=== PATIENT | female | born 1965 | race Caucasian/White ===

== ENCOUNTER 2024-02-23 14:59 | Emergency (ER) | payer BC, SELFPAY ==
[2024-02-23 15:00] VITALS: BP 157/85; PULSE 74; RESP 15; TEMP 36.6; O2SAT 99; BMI 32.7
--- NOTE | 2024-02-23 15:24 | EDS_ITS ---
HPI History of Present Illness Chief Complaint: Eye Problem Informant: patient Narrative Narrative: Presents to the ED for evaluation of right eye issues. Yesterday patient is nearsighted wears glasses last eye exam 2 years ago. Yesterday stated noted oral sensation that was brief on the right side. That has resolved. She has had oral issues couple times in the past also self-limiting. Today however reported no in the right eye film to her right eye and noting bubbles in different depth. Denies recent head injuries. Denies visual changes. She reports she has been caring for her 2 parents who are both in hospice, she lost her pet of 20 years, her spouse just got diagnosed with melanoma. Denies nausea or vomiting. Denies any past medical history. Denies any pain to the eye. Prior similar symptoms: No PFSH PFSH Allergy/AdvReac Type Severity Reaction Status Date / Time No Known Allergies Allergy Verified 02/23/24 15:00 Social History Smoking Status: Never smoker ROS ROS ED Constitutional Constitutional ED: Denies chills, fever(s) or sweats Eyes Eyes: Reports blurry vision and other Details: Film to right eye, transient aura ; Denies change in vision Cardiovascular Cardiovascular: Denies chest pain Respiratory/Chest Respiratory/Chest: Denies cough Gastrointestinal Gastrointestinal: Denies abdominal pain, nausea or vomiting Neurologic Neurologic: Denies headache(s) EXAM Physical Exam Const Vital Signs: 02/23/24 15:00 Temperature 97.8 F Temperature Source Temporal Pulse Rate 74 Respiratory Rate 15 Blood Pressure 157/85 H Blood Pressure Mean 109 Pulse Ox 99 Oxygen Delivery Method Room Air Positive well nourished and well developed General Appearance ED: well developed and NAD HEENT Reports moist mucous membranes normocephalic and atraumatic Eyes EOMs intact bilaterally and conjunctivae normal Eyes Narrative: Pupils equal and reactive to light symmetric bilaterally. Eyelids normal eyelid everted right eye normal. Gross examination is corneas normal. Visual acuity with glasses: 20/20 OD, 20/25 OS, 20/20 OU. Finger counting in all 4 quadrants intact. General Eye ED: Yes normal appearance of both eyes Neck General: Negative for tenderness Chest Wall Chest: Negative for tenderness Resp normal respiratory effort and normal air movement Effort and Inspection: symmetric chest movement; Negative for respiratory distress Cardio regular rate, regular rhythm and no murmurs Peripheral Pulses: pulses 2+ throughout GI normal to inspection, nondistended, normoactive bowel sounds and non-tender Palpation: Negative for guarding or rebound tenderness present Back/Spine no CVA tenderness and no thoracic nor lumbar tenderness Extremity normal to inspection General Extremety ED: Negative for edema or tenderness General Extremity: Negative for edema Neuro oriented x3, CN's II-XII intact bilaterally and no sensory deficits noted Sensorium / Orientation: awake and alert Skin no rashes or lesions noted and no wounds MDM MDM MDM Narrative Medical decision making narrative: Interventions / MDM: Differential diagnosis: Right eye visual disturbance, floaters Diagnosis considered but do not suspect: No signs of glaucoma, no loss of vision in any quadrants. No clinical stroke concerns. My EKG interpretation: N/A Imaging independently reviewed and interpreted by myself: N/A External documents reviewed: N/A Test considered but not ordered:N/A ED course: Vision acuity 20/25 on the right, denied any pain or visual changes. Low clinical suspicion for glaucoma or retinal detachment. However reporting a film to her eye with bubbles in different depth that is not new for her. I will discuss with ophthalmology for outpatient evaluation. 1540: I spoke with adjunct professor of law Dr. Patel, discussed patient's history and discussion findings. Patient reports only few floaters no vision loss no pain. She is not clear on her history noting a film with bubbles in different depth. She also agrees low suspicion for retinal detachment however states if she develops 100s of floaters or loss of vision for her to return for reevaluation. Otherwise she can follow-up with the office on Monday. I discussed this with the patient with signs and symptoms to return. Outpatient follow-up given. All questions were answered. Re-evaluation: stable Disposition discussed with patient/family/significant other: Patient Case discussed with consulting clinician: Ophthalmology This note was generated with [employer] dictation software. It may contain incorrect words, spelling, and punctuation that were not noted in checking the note before signing. Discharge Plan Triage Chief Complaint: Eye Problem ED Provider: Odin Lawrence Dx/Rx/DC Orders Clinical Impression: Visual disturbance of one eye, Vitreous floaters of right eye Instructions: What Are Flashes and Floaters? Primary Care Provider: Care Physician,No Primary Referrals: Luz Patel MD [Med Staff - Active Staff] - 02/26/24 Care Physician,No Primary [Primary Care Provider] - Activity Restrictions/Additional Instructions: Visual acuity with glasses 20/25 OD, 20/20 OS, 20/[address] Patel in the ED. Monitor symptoms. Follow-up with office on Monday. Call for an appointment. If you develop loss of vision or 100s of floaters, return to the ED for reevaluation. Print Language: Kinyarwanda Disposition Disposition: Home, Self Care Discharge Date/Time: 02/23/24 16:05
[2024-02-23 16:04] VITALS: BP 146/84; PULSE 77; RESP 16; TEMP 36.6; O2SAT 100
== END 2024-02-23 16:05 | disposition home or self-care (01) ==
PROVIDERS: Emergency Provider Emergency Medicine; Referring Provider Emergency Medicine; Visit Provider Emergency Medicine
DX: H53.9 Unspecified visual disturbance (principal); H43.391 Other vitreous opacities, right eye
CPT/HCPCS: 99283

== ENCOUNTER → 2024-06-20 | Outpatient (CLI) | payer BC, SELFPAY ==
[2024-06-20 10:49] LABS: Absolute Lymphocyte Count 1.42 X10^3/uL (0.83-4.51); Absolute Neutrophil Count 1.9 X10^3/uL (2.0-7.7); Basophil# 0.05 X10^3/uL; Basophil% 1.3 % (0-1); Eosinophils% 5.2 % (0-5); Hematocrit 38.1 % (37-47); Lymphocyte # 1.42 X10^3/ul (0.83-4.51); Lymphocyte % 37.1 % (19-41); Mean Corp Hgb Conc 34.1 g/dL (32-36); Mean Corpuscular Hgb 30.6 pg (27.0-32.0); Mean Corpuscular Volume 89.6 fL (81-99); Mean Platelet Vol. 8.9 fl (6.2-12.0); Monocyte# 0.26 X10^3/uL; Monocyte% 6.8 % (0-10); NRBC Flagged by Analyzer 0 % (0-5); Neutrophil % 49.6 % (47-70); Platelet Count 185 K/mm3 (150-450); RBC Distribution Width CV 12.6 % (11.6-14.6); RBC Distribution Width SD 41.5 fl (35.1-43.9); Red Blood Count 4.25 M/mm3 (4.2-5.4); White Blood Count 3.8 K/mm3 (4.4-11.0)
[2024-06-20 11:28] LABS: ALB/GLOB Ratio 1.6 RATIO (0.9-2.4); AST(SGOT) 24 U/L (<=31); Alanine Aminotransfer ALT/SGPT 16 U/L (<=34); Albumin, Serum 4.1 g/dL (3.5-5.0); Alkaline Phosphatase 59 U/L (35-104); Anion Gap 9 (5-15); BUN 14 mg/dL (4-19); BUN/Creat Ratio 20.2 RATIO (10-20); Calcium,Total 9.1 mg/dL (7.6-11.0); Carbon Dioxide 26.4 mmol/L (21.0-32.0); Chloride 104 mmol/L (98-108); Cholesterol 183 mg/dL (<=200); EST Glomerular Filtration Rate 100 (>60); Ferritin 23 ng/mL (22-378); Globulin 2.5 g/dL (2.2-4.2); Glucose 86 mg/dL (70-99); High Density Lipoprotein 78 mg/dL; Low Density Lipoprotein Calc. 93 mg/dL; Potassium 4.2 mmol/L (3.3-5.1); Protein, Total 6.5 g/dL (5.9-8.4); Sodium Level 140 mmol/L (133-145); Total Bilirubin 0.42 mg/dL (0.00-1.30); Triglycerides 60 mg/dL; Very Low Density Lipoprotein 12 mg/dL (5-40); Vitamin B12 169 pg/mL (180-914); cholesterol:hdl ratio screen 2.33
[2024-06-20 14:24] LABS: Iron 110 ug/dL (50-170); Iron Binding Capacity,Total 308 ug/dL (250-450); Iron Binding Capacity,Unsat 198 ug/dL (228-428)
== END | disposition home or self-care (01) ==
LOC: MFPLAB 09:06
PROVIDERS: PCP Family Medicine; Referring Provider Family Medicine; Visit Provider Family Medicine
DX: Z78.9 Other specified health status (principal); E04.1 Nontoxic single thyroid nodule; F43.22 Adjustment disorder with anxiety
CPT/HCPCS: 36415; 80053; 80061; 82248; 82607; 82728; 82746; 83540; 83550; 84443; 85025

== ENCOUNTER → 2024-09-30 | Outpatient (CLI) | payer BC, SELFPAY ==
--- NOTE | 2024-09-30 10:03 | VDLE_ITS ---
Reason For Study Reason For Study: Right leg pain RIGHT CFV is compressible, spontaneous, phasic, competent and demonstrates normal augmentation. FV is compressible, spontaneous, phasic, competent and demonstrates normal augmentation. POP V is compressible, spontaneous, phasic, competent and demonstrates normal augmentation. T/P Trunk is compressible. PTV is compressible. RT PerV is compressible. SFJ is absent, hx ligation. GSV proximal thigh measures 0.19 x 0.21 cm. GSV at knee measures 0.15 x 0.16 cm. GSV is competent throughout. ASV 1 proximal thigh is INCOMPETENT for greater than 0.5 seconds and measures 0.50 x 0.48 cm. Anterior on thigh. ASV 2 proximal thigh is INCOMPETENT for greater than 0.5 seconds and measures 0.54 x 0.53 cm. Medial on thigh, extends down to prox calf. Very small cluster of varicose veins noted at the distal anterior perkins, unable to idetify origin due to vessel size. SSV mid calf is competent and measures 0.16 x 0.18 cm. Procedure This is a venous duplex using B-mode, color flow and spectral Doppler. Exam performed in department. Patient was scanned in reverse Trendelenburg position during reflux assessment. VL/Venous Duplex US, Unilateral Interpretation Summary Deep veins of the right lower extremity are patent and compressible segmentally . There is no evidence of right lower extremity deep vein thrombosis. The right great saphenous vein appears patent a nd compressible segmentally. Positive for reflux in the right accessory saphenous veins in the thigh. Ordering Physician: Rosa Zapata Referring Physician: Lukas Carlson MD Performed By: Nell Lundberg RVT
== END | disposition home or self-care (01) ==
PROVIDERS: PCP Family Medicine; Referring Provider Physician Assistant; Visit Provider Physician Assistant
DX: I83.899 Varicose veins of unspecified lower extremity with other complications (principal); I87.2 Venous insufficiency (chronic) (peripheral)
CPT/HCPCS: 93971